=== PATIENT | male | born 1990 | race Caucasian/White ===

== ENCOUNTER 2021-06-17 05:27 | Inpatient (IN) | payer BC ==
[2021-06-17] MEDS ORDERED: SUCRALFATE 1 GM TABLET (FP) PO ONE (05:29)
[2021-06-17] MEDS ORDERED: morphine CARPU-JECT 2 MG/1 ML DISP.SYRIN IVPUSH ONE (05:29)
[2021-06-17] MEDS ORDERED: ACETAMINOPHEN 1000 MG/100 ML VIAL (NON FORMULARY) IVPB ONE (05:34)
[2021-06-17] MEDS ORDERED: MAG HYDROX/AL HYDROX/SIMETH 30 ML UNIT-DOSE CUP PO ONE (05:34)
[2021-06-17] MEDS ORDERED: ASPIRIN 81 MG CHEWABLE TABLETS PO ONE (05:35)
[2021-06-17] MEDS ORDERED: MAG HYDROX/AL HYDROX/SIMETH 30 ML UNIT-DOSE CUP ONE (05:37)
[2021-06-17] MEDS ORDERED: ACETAMINOPHEN INJECTION 100 ML IVPB ONE (05:37)
[2021-06-17] MEDS ORDERED: ASPIRIN 81 MG CHEWABLE TABLETS ONE (05:38)
[2021-06-17] MEDS ORDERED: MAG HYDROX/AL HYDROX/SIMETH -MYLANTA- ORAL SUSPENSION PO ONE (05:40)
[2021-06-17] MEDS ORDERED: FAMOTIDINE 20 MG/50 ML IVPB 20 MG/50 ML MG IVPB ONE ×2 (05:40→05:58)
[2021-06-17 05:55] LABS: BASO % 0.9 % (0-2.0); EOS % 2.5 % (0-4.5); HEMATOCRIT 46.5 % (35.4-49); HEMOGLOBIN 16.2 GM/dL (11.7-16.9); LYMPH % 33.8 % (8-40); MCH 29.8 pg (25.7-33.7); MCHC 34.9 g/dl (32.0-35.9); MEAN CELL VOLUME 85.4 fl (80-96); MONO % 5.6 % (3.8-10.2); NEUT % 57.2 % (42.8-82.8); PLATELET COUNT 217 10^3/uL (134-434); RBC 5.45 M/mm3 (4.00-5.60); RDW 13.2 % (11.9-15.9); WHITE BLOOD COUNT 7.9 K/mm3 (4.0-10.0)
[2021-06-17] MEDS ORDERED: morphine CARPU-JECT 4 MG/1 ML DISP.SYRIN IVPUSH ONE ×2 (06:12→08:39)
[2021-06-17] MEDS ORDERED: morphine SULFATE 4 MG/ML VIAL ONE ×2 (06:14→08:40)
[2021-06-17 06:22] LABS: CHLORIDE 104 mmol/L (98-107); SODIUM 139 mmol/L (136-145)
[2021-06-17 06:24] LABS: CALCIUM 9.1 mg/dL (8.5-10.1)
[2021-06-17 06:25] LABS: ALBUMIN 3.9 g/dl (3.4-5.0); ANION GAP 8 MMOL/L (8-16); BLOOD UREA NITROGEN 12.6 mg/dL (7-18); CO2 27 mmol/L (21-32); GLUCOSE,RANDOM 96 mg/dL (74-106)
[2021-06-17 06:28] LABS: CREATININE 0.9 mg/dL (0.55-1.3); SGOT/AST 13 U/L (15-37); SGPT/ALT 25 U/L (13-61)
[2021-06-17 06:29] LABS: BILIRUBIN,TOTAL 0.5 mg/dL (0.2-1)
[2021-06-17 06:30] LABS: TOT PROT 8.1 g/dl (6.4-8.2)
[2021-06-17 06:31] LABS: ALK PHOS 87 U/L (45-117)
[2021-06-17] MEDS ORDERED: ONDANSETRON 4 MG/2 ML VIAL IVPUSH ONE (08:58)
[2021-06-17] MEDS ORDERED: HYDROmorphone HCL CARPU-JECT 2 MG/1 ML DISP.SYRIN IVPUSH ONE ×2 (08:58→11:53)
[2021-06-17] MEDS ORDERED: HYDROmorphone HCl 2 MG/ML VIAL ONE ×2 (09:02→11:53)
[2021-06-17] MEDS ORDERED: ONDANSETRON 4 MG/2 ML VIAL ONE (09:03)
[2021-06-17] MEDS ORDERED: ENOXAPARIN NA (PORCINE) 40 MG/0.4 ML DISP.SYRIN SQ ONE (11:52)
[2021-06-17] MEDS: ENOXAPARIN NA (PORCINE) 40 MG/0.4 ML DISP.SYRIN SQ SCH (11:58)
[2021-06-17] MEDS: morphine SULFATE 4 MG/ML VIAL IVPUSH PRN ×2 (16:08→22:14)
[2021-06-17] MEDS: SODIUM CHLORIDE 1,000 ML IV SCH (16:12)
[2021-06-17 18:08] VITALS: BMI 29.6
[2021-06-17 20:40] LABS: URINE BENZODIAZEPINES NEGATIVE (NEGATIVE)
[2021-06-17 20:41] LABS: COCAINE, UR NEGATIVE (NEGATIVE); METHADONE, UR NEGATIVE (NEGATIVE); PHENCYCLIDINE,URINE NEGATIVE (NEGATIVE); URINE AMPHETAMINES NEGATIVE (NEGATIVE); URINE BARBITURATES NEGATIVE (NEGATIVE)
[2021-06-17 20:49] LABS: OPIATES, URI POSITIVE (NEGATIVE)
[2021-06-17] MEDS: SUCRALFATE 1 GM/10 ML UNIT DOSE CUPS PO SCH (21:37)
[2021-06-18] MEDS: morphine SULFATE 4 MG/ML VIAL IVPUSH PRN (04:50)
[2021-06-18] MEDS: SODIUM CHLORIDE 1,000 ML IV SCH ×3 (04:53→21:44)
[2021-06-18] MEDS ORDERED: KETOROLAC TROMETHAMINE 15 MG/ML VIAL IVPUSH PRN (08:25)
[2021-06-18] MEDS ORDERED: ACETAMINOPHEN 1000 MG/100 ML VIAL (NON FORMULARY) IVPB PRN (08:28)
[2021-06-18 09:18] LABS: HEMATOCRIT 43.2 % (35.4-49); HEMOGLOBIN 15.2 GM/dL (11.7-16.9); MCHC 35.3 g/dl (32.0-35.9); MEAN CELL VOLUME 84.9 fl (80-96); PLATELET COUNT 192 10^3/uL (134-434); RBC 5.08 M/mm3 (4.00-5.60); RDW 13.4 % (11.9-15.9); WHITE BLOOD COUNT 10.8 K/mm3 (4.0-10.0)
[2021-06-18] MEDS: SUCRALFATE 1 GM/10 ML UNIT DOSE CUPS PO SCH ×2 (09:23→21:45)
[2021-06-18] MEDS: FAMOTIDINE 20 MG/50 ML IVPB 20 MG/50 ML MG IVPB SCH ×3 (09:24→21:45)
[2021-06-18] MEDS: ENOXAPARIN NA (PORCINE) 40 MG/0.4 ML DISP.SYRIN SQ SCH (09:26)
[2021-06-18] MEDS ORDERED: HYDROmorphone HCl 2 MG/ML VIAL IVPB ONE (09:30)
[2021-06-18 09:46] LABS: BLOOD UREA NITROGEN 6.2 mg/dL (7-18); CALCIUM 8.8 mg/dL (8.5-10.1); MAGNESIUM 1.7 mg/dL (1.8-2.4)
[2021-06-18 09:49] LABS: CREATININE 0.9 mg/dL (0.55-1.3)
[2021-06-18 09:50] LABS: PHOSPHOROUS 2.6 mg/dL (2.5-4.9)
[2021-06-18] MEDS ORDERED: MAGNESIUM OXIDE 400 MG TABLET (FP) PO ONE (11:30)
[2021-06-18] MEDS ORDERED: MAGNESIUM SULFATE IN WATER 2 GM/50 ML IVPB IVPB ONE (12:45)
[2021-06-18] MEDS: KETOROLAC TROMETHAMINE 15 MG/ML VIAL IVPUSH PRN ×2 (15:08→21:43)
[2021-06-18 18:58] LABS: INR 1.38 (0.83-1.09); PROTHROMBIN TIME (PATIENT) 16.5 SEC (9.7-13.0)
[2021-06-18 19:00] LABS: ACTIVATED PTT 35.3 SECONDS (25.2-36.5)
[2021-06-19] MEDS: KETOROLAC TROMETHAMINE 15 MG/ML VIAL IVPUSH PRN (05:32)
[2021-06-19] MEDS ORDERED: BUPIVACAINE HCL/PF 0.5% (5MG/ML) 10 ML VIAL ONE (07:29)
[2021-06-19] MEDS ORDERED: MIDAZOLAM HCL 2 MG/2 ML SINGLE DOSE VIAL ONE (07:36)
[2021-06-19] MEDS ORDERED: fentaNYL CITRATE 250 MCG/5 ML VIAL ONE (07:36)
[2021-06-19] MEDS ORDERED: PROPOFOL 20 ML ONE ×3 (07:36)
[2021-06-19] MEDS ORDERED: SUCCINYLCHOLINE CHLORIDE 200 MG/10 ML SYRINGE ONE (07:36)
[2021-06-19] MEDS ORDERED: ROCURONIUM BROMIDE 50 MG/5 ML SYRINGE ONE (07:37)
[2021-06-19] MEDS ORDERED: ceFAZolin SODIUM 1 GM VIAL IVPB ONE (08:20)
[2021-06-19] MEDS ORDERED: PHENYLEPHRINE HCL 10 MG/1 ML SINGLE DOSE VIAL ONE (09:57)
[2021-06-19] MEDS: SUCRALFATE 1 GM/10 ML UNIT DOSE CUPS PO SCH ×2 (10:07→21:15)
[2021-06-19] MEDS: FAMOTIDINE 20 MG/50 ML IVPB 20 MG/50 ML MG IVPB SCH ×2 (10:07→21:15)
[2021-06-19] MEDS ORDERED: BUPIVACAINE HCL/PF 0.5% (5 MG/ML) 30 ML VIAL IJ ONE (10:45)
[2021-06-19] MEDS ORDERED: NEOSTIGMINE METHYLSULFATE 0.5 MG/ML - 10 ML MDV ONE (10:54)
[2021-06-19] MEDS ORDERED: HYDROmorphone HCl 2 MG/ML VIAL IVPUSH PRN (11:54)
[2021-06-19] MEDS ORDERED: LACTATED RINGERS SOLUTION 1,000 ML IV SCH (12:00)
[2021-06-19] MEDS ORDERED: KETOROLAC TROMETHAMINE 30 MG/1 ML VIAL IVPUSH PRN (12:05)
[2021-06-19] MEDS ORDERED: ACETAMINOPHEN 1000 MG/100 ML VIAL (NON FORMULARY) IVPB PRN (12:05)
[2021-06-19] MEDS: morphine SULFATE 4 MG/ML VIAL IVPUSH PRN (13:58)
[2021-06-19] MEDS: SODIUM CHLORIDE 1,000 ML IV SCH ×2 (13:58→18:45)
[2021-06-20] MEDS: morphine SULFATE 4 MG/ML VIAL IVPUSH PRN ×2 (01:57→08:21)
[2021-06-20] MEDS: SODIUM CHLORIDE 1,000 ML IV SCH ×2 (08:20→12:07)
[2021-06-20 09:37] LABS: BLOOD UREA NITROGEN 6.1 mg/dL (7-18)
[2021-06-20 09:38] LABS: MAGNESIUM 1.8 mg/dL (1.8-2.4)
[2021-06-20] MEDS ORDERED: HYDROmorphone HCl 2 MG/ML VIAL IVPB PRN ×2 (09:38→10:45)
[2021-06-20 09:39] LABS: BILIRUBIN,TOTAL 0.6 mg/dL (0.2-1); TOT PROT 6.2 g/dl (6.4-8.2)
[2021-06-20 09:40] LABS: CREATININE 0.7 mg/dL (0.55-1.3); PHOSPHOROUS 2.6 mg/dL (2.5-4.9)
[2021-06-20 09:55] LABS: ALBUMIN 2.6 g/dl (3.4-5.0)
[2021-06-20] MEDS: FAMOTIDINE 20 MG/50 ML IVPB 20 MG/50 ML MG IVPB SCH ×2 (10:03→21:14)
[2021-06-20] MEDS: SUCRALFATE 1 GM/10 ML UNIT DOSE CUPS PO SCH ×2 (10:03→21:14)
[2021-06-20] MEDS: ENOXAPARIN NA (PORCINE) 40 MG/0.4 ML DISP.SYRIN SQ SCH (10:07)
[2021-06-20 10:17] LABS: BASO % 0.6 % (0-2.0); EOS % 2.2 % (0-4.5); HEMATOCRIT 37.4 % (35.4-49); HEMOGLOBIN 12.8 GM/dL (11.7-16.9); MCH 29.2 pg (25.7-33.7); MCHC 34.2 g/dl (32.0-35.9); MEAN CELL VOLUME 85.3 fl (80-96); MEAN PLT VOLUME 10.6 fl (7.5-11.1); MONO % 6.5 % (3.8-10.2); NEUT % 66.7 % (42.8-82.8); PLATELET COUNT 160 10^3/uL (134-434); RBC 4.39 M/mm3 (4.00-5.60); RDW 13.5 % (11.9-15.9); WHITE BLOOD COUNT 7.3 K/mm3 (4.0-10.0)
[2021-06-20] MEDS ORDERED: morphine SULFATE 4 MG/ML VIAL IVPUSH PRN (10:45)
[2021-06-20] MEDS ORDERED: CEFTRIAXONE 1 GM in DEXTROSE 5%-WATER - 50 ML IVPB SCH (11:45)
[2021-06-20] MEDS: ACETAMINOPHEN 1000 MG/100 ML VIAL (NON FORMULARY) IVPB SCH ×2 (12:00→20:27)
[2021-06-20] MEDS ORDERED: cefTRIAXone SODIUM 1 GM VIAL ONE (12:03)
[2021-06-20] MEDS ORDERED: DEXTROSE 5%-WATER - 50 ML IVPB ONE (12:03)
[2021-06-20] MEDS: KETOROLAC TROMETHAMINE 30 MG/1 ML VIAL IVPUSH SCH ×2 (15:04→23:59)
[2021-06-21] MEDS: SODIUM CHLORIDE 1,000 ML IV SCH (01:05)
[2021-06-21] MEDS ORDERED: ACETAMINOPHEN 325 MG TABLET (FP) PO PRN (04:05)
[2021-06-21 08:33] LABS: HEMATOCRIT 35.2 % (35.4-49); HEMOGLOBIN 12.2 GM/dL (11.7-16.9); MCH 29.7 pg (25.7-33.7); MCHC 34.7 g/dl (32.0-35.9); MEAN CELL VOLUME 85.8 fl (80-96); MEAN PLT VOLUME 9.9 fl (7.5-11.1); PLATELET COUNT 189 10^3/uL (134-434); RBC 4.11 M/mm3 (4.00-5.60); RDW 13.5 % (11.9-15.9); WHITE BLOOD COUNT 4.4 K/mm3 (4.0-10.0)
[2021-06-21 08:58] LABS: CALCIUM 8.2 mg/dL (8.5-10.1)
[2021-06-21 08:59] LABS: BLOOD UREA NITROGEN 5.8 mg/dL (7-18)
[2021-06-21 09:02] LABS: CREATININE 0.6 mg/dL (0.55-1.3)
[2021-06-21] MEDS: ENOXAPARIN NA (PORCINE) 40 MG/0.4 ML DISP.SYRIN SQ SCH (09:32)
[2021-06-21] MEDS: SUCRALFATE 1 GM/10 ML UNIT DOSE CUPS PO SCH (09:32)
[2021-06-21] MEDS: FAMOTIDINE 20 MG/50 ML IVPB 20 MG/50 ML MG IVPB SCH (09:32)
[2021-06-21] MEDS: KETOROLAC TROMETHAMINE 30 MG/1 ML VIAL IVPUSH SCH (09:32)
[2021-06-21] MEDS ORDERED: LACTOBACILLUS ACIDOPHILUS 1 TABLET PO SCH (10:00)
[2021-06-21] MEDS ORDERED: MORPHINE SULFATE 2 MG/ML VIAL IVPUSH ONE (10:25)
[2021-06-21] MEDS ORDERED: oxyCODONE HCL 5 MG TABLET PO PRN ×2 (11:07→11:08)
[2021-06-21] MEDS ORDERED: IBUPROFEN 600 MG TABLET (FP) PO PRN (11:10)
[2021-06-21 18:52] VITALS: BP 135/96; PULSE 64; TEMP 99.2
== END 2021-06-21 20:12 | disposition home or self-care (01) | DRG 419 ==
LOC: JER 05:27 → JERBED 10:06 → J5S 12:09
PROVIDERS: ADMIT Internal Medicine; ATTEND Internal Medicine
PROC: 0FT44ZZ Resection of Gallbladder, Percutaneous Endoscopic Approach (ICD-10-PCS; principal; 2021-06-19 08:11)
DX: K80.01 Calculus of gallbladder with acute cholecystitis with obstruction (principal); K82.A1 Gangrene of gallbladder in cholecystitis; F98.8 Other specified behavioral and emotional disorders with onset usually occurring in childhood and adolescence; R10.13 Epigastric pain; D18.09 Hemangioma of other sites
CPT/HCPCS: 36415; 71045-TC-FY; 76705-TC; 80048; 80053; 80307; 82550; 83605; 83690; 83735; 84100; 84484; 85025; 85027; 85610; 85730; 93005; 93010; 94760; 99285-25; C9803; J0131; U0003; U0005